=== PATIENT | female | born 1950 | race Caucasian/White ===

== ENCOUNTER 2023-06-01 08:04 | Emergency (ER) | payer MEDICARE ==
[2023-06-01] MEDS ORDERED: Iopamidol 370 76% 100 ML VIAL ONE (09:00)
[2023-06-01 09:11] LABS: #Basophils 0.1 thou/uL (0.0-0.2); #Eosinphils 0.1 thou/uL (0.0-0.7); #Lymphocytes 0.6 thou/uL (1.20-3.40); #Monocytes 0.7 thou/uL (0.11-0.59); #Neutrophils 8.4 thou/uL (1.40-6.50); %Eosinophils 1.2 % (0.0-10.0); %Lymphocytes 5.6 % (21.0-51.0); %Monocytes 6.8 % (0.0-10.0); %Neutrophils 85.4 % (42.0-75.0); Hematocrit 45.6 % (36.0-47.0); Hemoglobin 14.4 g/dL (12.0-16.0); Mean Corpuscular HGB CONC 31.6 g/dL (32.0-36.0); Mean Corpuscular Hemoglobin 28.1 pg (27.0-31.0); Mean Corpuscular Volume 88.9 fl (78.0-98.0); Mean Platelet Volume 8.3 fL (7.4-10.4); Platelet Count 233 10x3/uL (130-400); RBC Distribution Width 14.9 % (11.5-14.5); Red Blood Cell (RBC) Count 5.14 mill/uL (4.20-5.40); White Blood Cell (WBC) Count 9.8 10x3/uL (4.8-10.8)
[2023-06-01 09:30] LABS: ALT (SGPT) 20 U/L (8-55); AST (SGOT) 20 U/L (5-34); Albumin 4.1 g/dL (3.4-4.8); Alkaline Phosphatase 75 U/L (40-110); Anion Gap 17 mmol/L (10-20); BUN (Urea Nitrogen) 19 mg/dL (9.8-20.1); Bilirubin, Total 0.6 mg/dL (0.2-1.2); Calc. Creatinine Clearance 0 mL/min (70-130); Calcium 9.5 mg/dL (7.8-10.44); Carbon Dioxide 27 mmol/L (23-31); Chloride 101 mmol/L (98-107); Estimated GFR 70; Globulin 2.6 g/dL (2.4-3.5); Glucose 118 mg/dL (83-110); Potassium 3.5 mmol/L (3.5-5.1); Protein, Total 6.7 g/dL (5.8-8.1); Sodium 141 mmol/L (136-145)
[2023-06-01 10:03] LABS: Influenza A by NAA Not Detected (NotDetected); Influenza B by NAA Not Detected (NotDetected); SARS-CoV-2 NAA Rapid Test Not Detected (NotDetected)
[2023-06-01] MEDS ORDERED: Ketorolac Tromethamine 30 MG (1 mL) VIAL ONE (10:04)
[2023-06-01 10:08] LABS: Bilirubin Small (Negative); Blood, Urine Negative (Negative); Clarity Clear (Clear); Glucose, Urine (Dipstick) Negative (Negative); Ketone, Urine 15 mg/dL (Negative); Leukocyte Negative (Negative); Nitrite Negative (Negative); Protein, Urine (Dipstick) Negative (Neg-Trace); Specific Gravity, Urine 1.015 (1.005-1.030); Urobilinogen 0.2 mg/dL (Less than 2)
[2023-06-01 10:13] LABS: Bacteria/HPF Rare-Few HPF (None Seen); CAUTI Indications for Culture Dysuria,urgency,freq; RBC/HPF 0-3 HPF (0-3); WBC/HPF 0-3 HPF (0-3)
[2023-06-01 10:15] LABS: Urine Culture Reflex No No
[2023-06-01] MEDS ORDERED: Clindamycin/D5W 600 mg/50 ml Premix Bag ONE (10:53)
== END 2023-06-01 14:04 | disposition home or self-care (01) ==
LOC: MADERS 08:04
DX: L03.221 Cellulitis of neck (principal); I10 Essential (primary) hypertension; Z79.82 Long term (current) use of aspirin; Z79.899 Other long term (current) drug therapy
CPT/HCPCS: 70491; 71046; 80053; 81001; 83605; 85025; 87040; 87070; 87077; 87186; 87205; 93005; 94760; 96361; 96374; J1885; J3490; Q9967

== ENCOUNTER 2023-08-26 11:53 | Emergency (ER) | payer MEDICARE ==
[~2023-08-26 11:53] MED LIST: Iopamidol 370 76% 100 ML VIAL ONE; Sodium Chloride 0.9% 100 ML BAG ONE
[2023-08-26] MEDS ORDERED: Lactated Ringer's 1,000 ML ONE ×2 (12:47→17:14)
[2023-08-26] MEDS ORDERED: Cefepime 2 GM VIAL ONE (12:47)
[2023-08-26 13:17] LABS: INR-International Normal Ratio 1.1; Prothrombin Time 14.3 sec (12.0-14.7)
[2023-08-26 13:18] LABS: PTT 37.5 sec (22.9-36.1)
[2023-08-26 13:25] LABS: Band 6 % (5-11); Hematocrit 34.1 % (36.0-47.0); Hemoglobin 10.7 g/dL (12.0-16.0); Hypochromia SLIGHT = 6-15 cells (100X) (0-5/hpf); Lymphocytes 25 % (21-51); MDiff Complete? YES; Mean Corpuscular HGB CONC 31.4 g/dL (32.0-36.0); Mean Corpuscular Hemoglobin 28.1 pg (27.0-31.0); Mean Corpuscular Volume 89.4 fl (78.0-98.0); Mean Platelet Volume 5.4 fL (7.4-10.4); Monocytes 8 % (0-10); Neutrophil 59 % (42-75); Nucleated RBC (Manual Ct) 1 % (0); Platelet Adequacy Comment Appears Adequate; Platelet Count 219 10x3/uL (130-400); RBC Distribution Width 14.7 % (11.5-14.5); Red Blood Cell (RBC) Count 3.81 mill/uL (4.20-5.40); White Blood Cell (WBC) Count 4.6 10x3/uL (4.8-10.8)
[2023-08-26 13:27] LABS: ALT (SGPT) 22 U/L (8-55); AST (SGOT) 35 U/L (5-34); Alkaline Phosphatase 75 U/L (40-110); Anion Gap 16 mmol/L (10-20); BUN (Urea Nitrogen) 15 mg/dL (9.8-20.1); Bilirubin, Total 0.7 mg/dL (0.2-1.2); Calc. Creatinine Clearance 0 mL/min (70-130); Calcium 8.3 mg/dL (7.8-10.44); Carbon Dioxide 23 mmol/L (23-31); Chloride 99 mmol/L (98-107); Estimated GFR 86; Globulin 2.3 g/dL (2.4-3.5); Glucose 120 mg/dL (83-110); Magnesium 1.6 mg/dL (1.6-2.6); Protein, Total 5.3 g/dL (5.8-8.1); Sodium 135 mmol/L (136-145)
[2023-08-26 13:29] LABS: Troponin I 0.025 ng/mL (< 0.028)
[2023-08-26] MEDS ORDERED: Potassium Chloride 20 MEQ TAB ONE (13:53)
[2023-08-26] MEDS ORDERED: LevoFLOXacin 750 mg/D5W 150 ml Premix Bag ONE (13:53)
[2023-08-26 13:55] LABS: Influenza A by NAA Not Detected (NotDetected); Influenza B by NAA Not Detected (NotDetected); SARS-CoV-2 NAA Rapid Test Not Detected (NotDetected)
[2023-08-26 14:18] LABS: Bilirubin Negative (Negative); Blood, Urine Negative (Negative); Clarity Clear (Clear); Glucose, Urine (Dipstick) Negative (Negative); Ketone, Urine Trace mg/dL (Negative); Leukocyte Negative (Negative); Nitrite Negative (Negative); Protein, Urine (Dipstick) Negative (Neg-Trace); Urobilinogen 0.2 mg/dL (Less than 2)
[2023-08-26 14:24] LABS: CAUTI Indications for Culture Fever or rigors; RBC/HPF 0-3 HPF (0-3); Squamous Epithelial 0-3 HPF (0-3); WBC/HPF 0-3 HPF (0-3)
[2023-08-26 14:25] LABS: Bacteria/HPF Rare-Few HPF (None Seen); Urine Culture Reflex No No
[2023-08-26] MEDS ORDERED: Enoxaparin 60 MG (0.6 mL) SYRINGE ONE (15:19)
== END 2023-08-26 18:27 | disposition short-term general hospital (02) ==
LOC: MADERS 11:53
DX: J18.9 Pneumonia, unspecified organism (principal); D64.9 Anemia, unspecified; E05.90 Thyrotoxicosis, unspecified without thyrotoxic crisis or storm; E87.6 Hypokalemia; R09.02 Hypoxemia; I26.99 Other pulmonary embolism without acute cor pulmonale; I10 Essential (primary) hypertension; Z79.82 Long term (current) use of aspirin
CPT/HCPCS: 70450; 71045; 71275; 80053; 81001; 83605; 83735; 83880; 84443; 84484; 85025; 85610; 85730; 87040; 93005; 94760; 96365; 96366; 96367; J0692; J1650; J1956; J3490; J7120; Q9967